=== PATIENT | male | born 1955 | race Caucasian/White ===

== ENCOUNTER 2019-08-24 10:50 | Outpatient (CLI) | payer OTHER ==
--- NOTE | 2019-08-24 14:57 | NUR ---
REC: Regular/thins Addendum: 08/24/19 at 1457 by Kateryna RAUSCH Amended: Links added.
== END 2019-08-24 23:59 | disposition home or self-care (01) ==
LOC: RAD 10:50
PROVIDERS: ATTEND Nurse Practitioner Primary Care
DX: R13.10 Dysphagia, unspecified (principal)
CPT/HCPCS: 74230